=== PATIENT | female | born 2000 | race Hispanic/Latino ===

== ENCOUNTER 2024-02-18 21:30 | Emergency (ER) | payer SELFPAY ==
[~2024-02-18] VITALS: Ht 157.5 cm; Wt 81.6 kg
[2024-02-18 21:43] VITALS: PULSE 91; RESP 18; TEMP 98.6
[2024-02-18] MEDS: ONDANSETRON HCL 4 MG ORAL DISINTEGRATING TAB PO STA (22:00)
[2024-02-18 23:19] VITALS: BP 129/87; PULSE 83; RESP 18; TEMP 98.2; O2SAT 99
== END 2024-02-18 23:10 | disposition home or self-care (01) ==
LOC: ER 21:33
DX: O20.9 Hemorrhage in early pregnancy, unspecified (principal); R10.30 Lower abdominal pain, unspecified
CPT/HCPCS: 36415; 76817; 84702; 99284; Q0162